=== PATIENT | male | born 1980 | race Caucasian/White ===

== ENCOUNTER 2018-05-07 02:02 | Emergency (ER) | payer MEDICAID ==
--- NOTE | 2018-05-07 03:16 | EDM.PDOC ---
ED HPI GENERAL MEDICAL PROBLEM - General Chief Complaint: Behavioral/Psych Stated Complaint: [facility] Time Seen by Provider: 05/07/18 02:15 Source of Information: Reports: Patient, EMS - History of Present Illness Onset: Today Onset Date: 05/07/18 Onset Time: 00:00 - Related Data Allergies Allergy/AdvReac Type Severity Reaction Status Date / Time No Known Allergies Allergy Verified 05/07/18 02:12 Home Meds: Home Meds . [No Known Home Meds] 05/07/18 [History] Past Medical History Psychiatric History: Reports: Bipolar, Depression, Hallucinations, Schizophrenia Social & Family History - Tobacco Use Smoking Status *Q: Current Every Day Smoker Years of Tobacco use: 20 Packs/Tins Daily: 1 - Caffeine Use Caffeine Use: Reports: Soda - Recreational Drug Use Recreational Drug Use: No ED ROS GENERAL - Review of Systems Review Of Systems: See Below - Physical Exam Exam: See Below Exam Limited By: No Limitations Course - Vital Signs Last Recorded V/S: Last Vital Signs Temp 36.6 C 05/07/18 02:08 Pulse 143 H 05/07/18 02:08 Resp 18 05/07/18 02:08 BP 165/110 H 05/07/18 02:08 Pulse Ox 94 L 05/07/18 02:08 Departure - Departure Time of Disposition: 04:32 Disposition: Home, Self-Care 01 Condition: Fair Clinical Impression: Depressive disorder Schizophrenia Qualifiers: Schizophrenia type: unspecified Qualified Code(s): F20.9 - Schizophrenia, unspecified - Discharge Information *PRESCRIPTION DRUG MONITORING PROGRAM REVIEWED*: Not Applicable *COPY OF PRESCRIPTION DRUG MONITORING REPORT IN PATIENT LASHAE: Not Applicable Instructions: Supporting Someone With Schizophrenia Referrals: PCP,None [Primary Care Provider] - Additional Instructions: Followup with Psychiatrist appointment. assures me that he has an appointment.
--- NOTE | 2018-05-07 09:09 | ER ---
REASON FOR EMERGENCY ROOM VISIT: Paranoid delusions. HISTORY: This 37-year-old man from [place], [place], apparently hitchhiked all the way from [place] to [place] and arrived in town 2 hours before he was picked up in a [facility] parking lot. The reason he was brought here was because he was observed by some people talking about his feelings of impending doom. To be more specific, he states that "I have this overwhelming feeling, someone, in fact everyone is going to kill me." For this reason and similar statements, he was brought here by ambulance for evaluation and possible treatment. The patient was extraordinarily cooperative and polite and exhibited no signs of any hostile or violent behavior whatsoever. In talking to him, he was unable to state clearly what compelled him to hitchhike to [place] from [place]. He states that he has felt these feelings which he recognizes as paranoid and he has felt this way for most of his life, but states that in recent months, these feelings that someone is out to get him or someone was going to kill him were much more intense now than ever before. He states that he has an appointment back home in [place] to be "assessed for paranoid schizophrenia." He tells me that he saw a psychiatrist for chronic depression and treated with Zoloft while he was in his 20s. He denies hearing any voices and denies any visual or olfactory type hallucinations. He denies ever having a history of any violent behavior and states he has never owned or handled a gun or any kind of weapon except when he was a child, he shot a shotgun. He does admit that his appetite has been somewhat decreased lately. He denies any current use of alcohol or history of any other illicit drug use. He does smoke cigarettes. He does have a history of alcohol abuse apparently dating back 4 years ago when he was arrested and in fact jailed for a DUI in 2013. He states that he went to a rehab center in 2014 and has remained sober since then. He was in 2016, and he and his have an 8-month-old child. He states that she is with their 2nd child. It is noteworthy, throughout this interview, the patient made good eye contact. His affect was slightly flat, but not profoundly so. Apart from the Zoloft that he has taken in the past, he does state that he has been on another medication for his mental illness, but he cannot recollect the name of this medication. He denies any headaches, visual symptoms, tinnitus, dizziness, respiratory symptoms, chest pain, abdominal pain, genitourinary complaints, muscle or skeletal or joint pains. He denies any skin rashes. He states that he has never had any suicidal gestures or ideation, and has never had a violent encounter with anyone. His main trust is that he is aware that he has had these increasing feelings of impending doom that somebody is out to kill him or somebody, practically anybody in fact is intent on killing him. FAMILY HISTORY: His father has diabetes. His mother is alive and well. His sister is healthy. He states that all of his first-degree relatives have been on antidepressant medications in the past. CURRENT MEDICATIONS: None. ALLERGIES: None to medications. REVIEW OF SYSTEMS: Pertinent positives and negatives as noted in the HPI. PHYSICAL EXAMINATION: GENERAL: He is pleasant, cooperative, and oriented x3. He is in no acute distress. VITAL SIGNS: He is afebrile, his heart rate is 143, his blood pressure is 165/110, O2 sats 94%, respiratory rate is 18. HEENT: Normocephalic. No external evidence of trauma. Pupils equally round and reactive to light. Oropharynx is normal. TMs are normal. NECK: Supple. No bruits. No JVD. CHEST: Clear to auscultation with good air exchange bilaterally. CARDIAC: Regular rate without murmur. ABDOMEN: Somewhat obese, soft, nontender. No palpable masses. EXTREMITIES: Normal pulses. No edema. No deformities. No external evidence of trauma. SKIN: No rashes. NEUROLOGIC: His cranial nerves II through XII are intact. Deep tendon reflexes are symmetrical. Muscle strength, bulk and tone are normal and symmetrical bilaterally in the upper and lower extremities. Sensory examination is normal to crude touch. MENTAL STATUS: He is oriented x3. He makes good eye contact. His affect is slightly flat. He seems to answer questions appropriately and logically. He exhibits no emotional lability. IMPRESSION: 1. Paranoid delusions with sense of impending doom, as described above, and history of depression and possible schizophrenia. 2. Tachycardia, uncertain etiology. PLAN: I discussed with the patient that I would want to evaluate him with some blood work including a CBC, a CMP, TSH, urinalysis, urine drug screen, and EKG. He refuses all of these. States that he does not want anything on his medical record, even though I told him this is for his own good. He states that he does not want to have this performed. We will observe him for the time being, and perhaps he will change his mind. In the meantime, he has been trying to get a hold of his whom he states will come and pick him up from [place]. It is still somewhat an enigma to me why he would hitch a ride from [employer] to [employer], as he has not been able to provide an answer. I am somewhat suspicious of his tachycardia and his reluctance to submit to the tests I suggested earlier. I do not feel that he is an imminent threat to himself or anyone else. He is very cooperative and polite otherwise, and we will simply observe him until disposition with his or someone else can be determined. Perhaps, he will change his mind regarding the above-mentioned tests. All questions were answered. He understands and agrees. LAURA /[id number]
== END 2018-05-07 04:38 | disposition home or self-care (01) ==
LOC: JD.ED 02:02
DX: F22 Delusional disorders (principal); F32.9 Major depressive disorder, single episode, unspecified; F20.9 Schizophrenia, unspecified; F17.210 Nicotine dependence, cigarettes, uncomplicated; R00.0 Tachycardia, unspecified
CPT/HCPCS: 99284; 99285